=== PATIENT | female | born 1990 | race African-American/Black ===

== ENCOUNTER 2022-01-02 16:00 | Emergency (ER) | payer SELFPAY ==
[2022-01-02] MEDS ORDERED: Ketorolac Tromethamine 30 MG/ML VIAL ONE (16:43)
[2022-01-02 17:43] LABS: SARS-CoV-2 NAA Rapid Test Not Detected (NotDetected)
== END 2022-01-02 18:30 | disposition home or self-care (01) ==
LOC: CSHERS 16:00
DX: J06.9 Acute upper respiratory infection, unspecified (principal); F17.210 Nicotine dependence, cigarettes, uncomplicated; Z20.822 Contact with and (suspected) exposure to COVID-19
CPT/HCPCS: 71045; 93005; 96372; J1885

== ENCOUNTER 2022-12-10 10:21 | Day surgery (SDC) | payer SELFPAY ==
[2022-12-10 10:42] VITALS: BMI 32.8
[2022-12-10] MEDS ORDERED: hydrALAZINE 20 MG/ML VIAL SLOW IVP PRN (11:00)
[2022-12-10] MEDS ORDERED: Lactated Ringer's 1,000 ML IV SCH (11:15)
[2022-12-10 12:08] LABS: #Eosinphils 0.1 10x3/uL (0.0-0.5); #Monocytes 0.8 10x3/uL (0.0-1.1); #Neutrophils 5.8 10x3/uL (1.5-8.4); %Basophils 0.4 % (0.0-2.0); %Eosinophils 1.5 % (0.0-6.0); %Lymphocytes 20.2 % (18.0-47.0); %Monocytes 8.9 % (0.0-10.0); %Neutrophils 68.1 % (40.0-75.0); Hematocrit 31.4 % (34.9-44.5); Hemoglobin 10.6 g/dL (12.0-15.5); Mean Corpuscular HGB CONC 33.8 g/dL (32.0-36.0); Mean Corpuscular Hemoglobin 31.4 pg (27.0-33.0); Mean Corpuscular Volume 92.9 fl (81.6-98.3); Mean Platelet Volume 10.9 fl (7.4-10.4); Platelet Count 244 10x3/uL (150-450); RBC Distribution Width 12.2 % (11.5-14.5); Red Blood Cell (RBC) Count 3.38 10x6/uL (3.90-5.03); White Blood Cell (WBC) Count 8.5 10x3/uL (3.5-10.5)
[2022-12-10 12:13] LABS: ALT (SGPT) 9 U/L (8-55); AST (SGOT) 15 U/L (5-34); Albumin 3.4 g/dL (3.5-5.0); Alkaline Phosphatase 77 U/L (40-110); Anion Gap 15 mmol/L (10-20); BUN (Urea Nitrogen) 5 mg/dL (7.0-18.7); Bilirubin, Total 0.2 mg/dL (0.2-1.2); Calc. Creatinine Clearance 148 mL/min (70-130); Calcium 9.8 mg/dL (7.8-10.44); Carbon Dioxide 21 mmol/L (22-29); Chloride 107 mmol/L (98-107); Estimated GFR 119; Globulin 3.1 g/dL (2.4-3.5); Glucose 82 mg/dL (70-105); Potassium 4.2 mmol/L (3.5-5.1); Protein, Total 6.5 g/dL (6.0-8.3); Sodium 139 mmol/L (136-145)
[2022-12-10 12:14] LABS: Bilirubin Neg (Negative); Blood, Urine Negative (Negative); Clarity Clear (Clear); Glucose, Urine (Dipstick) Normal (Negative); Ketone, Urine Negative (Negative); Leukocyte 500 (Negative); Nitrite Negative (Negative); Protein, Urine (Dipstick) Negative (Neg-Trace); Urobilinogen Normal mg/dL (Less than 2)
[2022-12-10 12:24] LABS: Amphetamine Not Detected (NotDetected); Barbiturates Screen Not Detected (NotDetected); Benzodiazepine Screen Not Detected (NotDetected); Cocaine Metabolite Screen Not Detected (NotDetected); Methadone Not Detected (NotDetected); Methamphetamine Not Detected (NotDetected); Opiate Screen Not Detected (NotDetected); Oxycodone Screen Not Detected (NotDetected); Phencyclidine (PCP) Detected (NotDetected); THC/Cannabinoid Screen Not Detected (NotDetected); Tricyclic Screen Not Detected (NotDetected)
[2022-12-10 12:31] LABS: CAUTI Indications for Culture Pregnancy; RBC/HPF None Seen HPF (0-3)
[2022-12-10 12:32] LABS: Bacteria/HPF 1+ HPF (None Seen); Squamous Epithelial 0-3 HPF (0-3)
[2022-12-10 12:34] LABS: Urine Culture Reflex Yes Yes
[2022-12-10] MEDS ORDERED: cefTRIAXone\\ROCEPHIN 1 GM in Sodium Chloride 0.9% 100 ML IVPB SCH (14:00)
== END 2022-12-10 15:25 | disposition home or self-care (01) ==
LOC: CSHLD/OP 10:21
PROVIDERS: ATTEND Family Medicine
DX: O47.03 False labor before 37 completed weeks of gestation, third trimester (principal); O23.43 Unspecified infection of urinary tract in pregnancy, third trimester; N39.0 Urinary tract infection, site not specified; Z87.59 Personal history of other complications of pregnancy, childbirth and the puerperium; Z79.899 Other long term (current) drug therapy; Z3A.32 32 weeks gestation of pregnancy
CPT/HCPCS: 36415; 76815; 80053; 80306; 81001; 85025; 87086; 96360; 99285; J0696; J3490

== ENCOUNTER 2023-01-06 09:23 | Day surgery (SDC) | payer MEDICAID, OTHER ==
[2023-01-06 10:26] LABS: #Basophils 0.1 10x3/uL (0.0-0.2); #Eosinphils 0.2 10x3/uL (0.0-0.5); #Monocytes 0.8 10x3/uL (0.0-1.1); #Neutrophils 6.5 10x3/uL (1.5-8.4); %Basophils 0.5 % (0.0-2.0); %Eosinophils 2.5 % (0.0-6.0); %Lymphocytes 18.3 % (18.0-47.0); %Monocytes 8.4 % (0.0-10.0); %Neutrophils 69.8 % (40.0-75.0); Hemoglobin 9.7 g/dL (12.0-15.5); Mean Corpuscular HGB CONC 33.4 g/dL (32.0-36.0); Mean Corpuscular Hemoglobin 31.3 pg (27.0-33.0); Mean Corpuscular Volume 93.5 fl (81.6-98.3); Mean Platelet Volume 11.2 fl (7.4-10.4); Platelet Count 247 10x3/uL (150-450); RBC Distribution Width 12.3 % (11.5-14.5); White Blood Cell (WBC) Count 9.3 10x3/uL (3.5-10.5)
[2023-01-06 10:28] LABS: ALT (SGPT) 10 U/L (8-55); AST (SGOT) 17 U/L (5-34); Albumin 3.4 g/dL (3.5-5.0); Alkaline Phosphatase 136 U/L (40-110); Anion Gap 13 mmol/L (10-20); BUN (Urea Nitrogen) 5 mg/dL (7.0-18.7); Bilirubin, Total 0.2 mg/dL (0.2-1.2); Calc. Creatinine Clearance 0 mL/min (70-130); Calcium 9.4 mg/dL (7.8-10.44); Carbon Dioxide 19 mmol/L (22-29); Chloride 108 mmol/L (98-107); Estimated GFR 119; Globulin 3.2 g/dL (2.4-3.5); Glucose 96 mg/dL (70-105); Lipase 5 U/L (8-78); Magnesium 1.8 mg/dL (1.6-2.6); Potassium 3.9 mmol/L (3.5-5.1); Protein, Total 6.6 g/dL (6.0-8.3); Sodium 136 mmol/L (136-145)
[2023-01-06 11:19] LABS: SARS-CoV-2 NAA Rapid Test Not Detected (NotDetected)
[2023-01-06 12:28] VITALS: BMI 32.8
[2023-01-06] MEDS ORDERED: hydrALAZINE 20 MG/ML VIAL SLOW IVP PRN (12:38)
[2023-01-06] MEDS ORDERED: Acetaminophen 500 MG TAB PO SCH (14:00)
[2023-01-06] MEDS ORDERED: guaiFENesin ER 600 MG TAB PO SCH (14:00)
[2023-01-06 14:35] LABS: Creatinine, Urine Less than 20.00 mg/dL (47-110); Protein, Urine Random Quant Less than 10 mg/dL (1-14)
== END 2023-01-06 14:20 | disposition home health service (06) ==
LOC: CSHERS 09:23 → CSHLD/OP 11:37
PROVIDERS: ATTEND Family Medicine
DX: O99.891 Other specified diseases and conditions complicating pregnancy (principal); R07.9 Chest pain, unspecified; J06.9 Acute upper respiratory infection, unspecified; O99.323 Drug use complicating pregnancy, third trimester; F19.90 Other psychoactive substance use, unspecified, uncomplicated; O13.3 Gestational [pregnancy-induced] hypertension without significant proteinuria, third trimester; Z3A.36 36 weeks gestation of pregnancy
CPT/HCPCS: 71045; 80053; 82570; 83690; 83735; 84156; 85025; 93005; 99282

== ENCOUNTER 2023-01-18 14:58 | Inpatient (IN) | payer OTHER ==
[2023-01-18] MEDS ORDERED: Diphenoxylate HCl/Atropine Tablet PO PRN (16:06)
[2023-01-18] MEDS ORDERED: Methylergonovine 0.2 MG/ML VIAL IM PRN (16:06)
[2023-01-18] MEDS ORDERED: Ondansetron PF 4 MG/2 ML Vial IVP PRN ×4 (16:06→21:32)
[2023-01-18] MEDS ORDERED: Promethazine HCl 25 MG/ML VIAL IM PRN ×4 (16:06→21:32)
[2023-01-18] MEDS ORDERED: Misoprostol 200 MCG TAB PR PRN (16:06)
[2023-01-18] MEDS ORDERED: hydrALAZINE 20 MG/ML VIAL SLOW IVP PRN (16:06)
[2023-01-18] MEDS ORDERED: Tranexamic Acid 1,000 MG/10 ML VIAL IVP PRN (16:06)
[2023-01-18] MEDS ORDERED: Famotidine/PF 20 mg/2ml Vial SLOW IVP PRN (16:06)
[2023-01-18] MEDS ORDERED: Carboprost 250 MCG/ML AMP IM PRN (16:06)
[2023-01-18] MEDS ORDERED: Bicitra 30 ML UDCUP PO PRN (16:06)
[2023-01-18] MEDS ORDERED: CEFAZOLIN 2 GM in Sodium Chloride 0.9% 100 ML IVPB SCH (16:15)
[2023-01-18] MEDS ORDERED: Oxytocin 30 units/NS 500 ML 500 ML IV SCH (16:15)
[2023-01-18 16:18] VITALS: BMI 38.7
[2023-01-18 16:42] LABS: Hematocrit 33.9 % (34.9-44.5); Hemoglobin 11.5 g/dL (12.0-15.5); Mean Corpuscular HGB CONC 33.9 g/dL (32.0-36.0); Mean Corpuscular Hemoglobin 29.9 pg (27.0-33.0); Mean Corpuscular Volume 88.3 fl (81.6-98.3); Mean Platelet Volume 11.7 fl (7.4-10.4); Platelet Count 292 10x3/uL (150-450); RBC Distribution Width 12.4 % (11.5-14.5); Red Blood Cell (RBC) Count 3.84 10x6/uL (3.90-5.03); White Blood Cell (WBC) Count 8.3 10x3/uL (3.5-10.5)
[2023-01-18 16:56] LABS: ALT (SGPT) 17 U/L (8-55); AST (SGOT) 25 U/L (5-34); Albumin 3.6 g/dL (3.5-5.0); Alkaline Phosphatase 158 U/L (40-110); Anion Gap 17 mmol/L (10-20); BUN (Urea Nitrogen) 7 mg/dL (7.0-18.7); Bilirubin, Total 0.2 mg/dL (0.2-1.2); Calc. Creatinine Clearance 158 mL/min (70-130); Calcium 9.4 mg/dL (7.8-10.44); Carbon Dioxide 18 mmol/L (22-29); Chloride 105 mmol/L (98-107); Estimated GFR 114; Globulin 2.8 g/dL (2.4-3.5); Glucose 108 mg/dL (70-105); Protein, Total 6.4 g/dL (6.0-8.3); Sodium 136 mmol/L (136-145)
[2023-01-18 17:00] LABS: Amphetamine Not Detected (NotDetected); Barbiturates Screen Not Detected (NotDetected); Benzodiazepine Screen Not Detected (NotDetected); Cocaine Metabolite Screen Not Detected (NotDetected); Methadone Not Detected (NotDetected); Methamphetamine Not Detected (NotDetected); Opiate Screen Not Detected (NotDetected); Oxycodone Screen Not Detected (NotDetected); Phencyclidine (PCP) Detected (NotDetected); THC/Cannabinoid Screen Not Detected (NotDetected); Tricyclic Screen Not Detected (NotDetected)
[2023-01-18] MEDS: Lactated Ringer's 1,000 ML IV SCH (17:01)
[2023-01-18] MEDS ORDERED: fentaNYL 50 mcg/mL 1 mL Vial SLOW IVP PRN (17:09)
[2023-01-18] MEDS ORDERED: Ketorolac Tromethamine 30 MG/ML VIAL IVP PRN ×2 (17:09→21:32)
[2023-01-18] MEDS ORDERED: Promethazine HCl 25 MG SUPP PR PRN ×2 (17:09→21:32)
[2023-01-18] MEDS ORDERED: Naloxone HCl 0.4 mg/ml Vial IV PRN ×2 (17:09→21:32)
[2023-01-18] MEDS ORDERED: diphenhydrAMINE 50 MG/ML VIAL IVP PRN ×2 (17:09→21:32)
[2023-01-18] MEDS ORDERED: Naloxone HCl 0.4 mg/ml Vial IVP PRN ×4 (17:09→21:32)
[2023-01-18] MEDS ORDERED: Meperidine HCl/PF 25 MG/ML VIAL SLOW IVP PRN (17:09)
[2023-01-18] MEDS ORDERED: HYDROmorphone 0.5 MG/0.5 ML SYRINGE SLOW IVP PRN (17:09)
[2023-01-18] MEDS ORDERED: Moisturizing Cream (Eucerin) 113 GM JAR TOP PRN ×2 (17:09→21:32)
[2023-01-18] MEDS ORDERED: Ketorolac Tromethamine 30 MG/ML VIAL IVP SCH (17:15)
[2023-01-18] MEDS ORDERED: Communication Order-Pharmacy FS SCH ×2 (17:15→21:45)
[2023-01-18 17:19] LABS: HBSAg Index 0.12 S/CO (0-0.99); Hep B Surf Ag - L&D Non-Reactive S/CO (NonReactive)
[2023-01-18 17:20] LABS: Syphilis Antibody Nonreactive (Nonreactive); Syphilis Antibody Index 0.03 S/CO (<1.00 Non-Reactive)
[2023-01-18] MEDS ORDERED: Morphine PF 10 MG/10 ML VIAL ONE (17:25)
[2023-01-18] MEDS ORDERED: fentaNYL 50 mcg/mL 1 mL Vial ONE (17:25)
[2023-01-18] MEDS ORDERED: Oxytocin 10 UNITS/ML VIAL ONE ×2 (17:26→18:39)
[2023-01-18] MEDS ORDERED: Ondansetron PF 4 MG/2 ML Vial ONE (17:26)
[2023-01-18] MEDS ORDERED: Phenylephrine 40 MG/NS 250 ML 250 ML ONE (17:29)
[2023-01-18] MEDS ORDERED: HYDROmorphone 2 MG/ML VIAL SLOW IVP PRN (21:32)
[2023-01-18] MEDS ORDERED: Ondansetron HCl/PF 4 MG/2 ML Vial IVP PRN (21:32)
[2023-01-19] MEDS ORDERED: hydrALAZINE 20 MG/ML VIAL SLOW IVP PRN (00:24)
[2023-01-19] MEDS ORDERED: Ondansetron PF 4 MG/2 ML Vial IVP PRN (00:24)
[2023-01-19] MEDS ORDERED: Boostrix 0.5 ML (Tdap) VIAL (>/=7 yrs of age) IM ONE (00:24)
[2023-01-19] MEDS ORDERED: Bisacodyl 10 MG SUPP PR PRN (00:24)
[2023-01-19] MEDS ORDERED: diphenhydrAMINE 25 MG CAP PO PRN (00:24)
[2023-01-19] MEDS ORDERED: Lanolin Ointment 7 GM TUBE TOP PRN (00:24)
[2023-01-19] MEDS ORDERED: Promethazine HCl 25 MG/ML VIAL IM PRN (00:24)
[2023-01-19] MEDS ORDERED: Ferrous Sulfate 325 MG TAB PO SCH (00:45)
[2023-01-19] MEDS ORDERED: Docusate 100 MG CAP PO SCH (00:45)
[2023-01-19] MEDS ORDERED: Communication Order-Pharmacy FS SCH (00:45)
[2023-01-19] MEDS: Ketorolac Tromethamine 30 MG/ML VIAL IVP SCH ×4 (00:48→19:26)
[2023-01-19] MEDS: Simethicone Chewable 80 MG TAB PO PRN ×3 (01:22→13:25)
[2023-01-19 04:25] LABS: Hematocrit 30.3 % (34.9-44.5); Hemoglobin 10.1 g/dL (12.0-15.5); Mean Corpuscular HGB CONC 33.3 g/dL (32.0-36.0); Mean Corpuscular Hemoglobin 29.7 pg (27.0-33.0); Mean Corpuscular Volume 89.1 fl (81.6-98.3); Mean Platelet Volume 11.2 fl (7.4-10.4); Platelet Count 227 10x3/uL (150-450); RBC Distribution Width 12.6 % (11.5-14.5); White Blood Cell (WBC) Count 9.6 10x3/uL (3.5-10.5)
[2023-01-19] MEDS ORDERED: Meperidine HCl/PF 25 MG/ML VIAL IM PRN (05:15)
[2023-01-19] MEDS: Lactated Ringer's 1,000 ML IV SCH (07:22)
[2023-01-19] MEDS: Ferrous Sulfate 325 MG TAB PO SCH ×2 (07:23→19:34)
[2023-01-19] MEDS: Docusate 100 MG CAP PO SCH ×2 (09:10→21:05)
[2023-01-19] MEDS: Prenatal Vitamin 1 TAB PO SCH (09:10)
[2023-01-19] MEDS: HYDROcodone/Acetaminophen 5/325 mg Tablet PO PRN ×3 (09:10→18:50)
[2023-01-19] MEDS ORDERED: NIFEdipine XL 30 MG ER.TAB PO SCH (18:30)
[2023-01-19] MEDS: Ibuprofen 800 MG TAB PO SCH (21:05)
[2023-01-20] MEDS: HYDROcodone/Acetaminophen 5/325 mg Tablet PO PRN ×4 (04:08→21:06)
[2023-01-20] MEDS: Ibuprofen 800 MG TAB PO SCH ×3 (06:03→21:57)
[2023-01-20] MEDS: NIFEdipine XL 30 MG ER.TAB PO SCH (09:30)
[2023-01-20] MEDS: Docusate 100 MG CAP PO SCH ×2 (09:31→21:06)
[2023-01-20] MEDS: Prenatal Vitamin 1 TAB PO SCH (09:31)
[2023-01-20] MEDS: Ferrous Sulfate 325 MG TAB PO SCH ×2 (13:58→19:39)
[2023-01-21] MEDS: HYDROcodone/Acetaminophen 5/325 mg Tablet PO PRN ×3 (01:12→10:56)
[2023-01-21] MEDS: Ibuprofen 800 MG TAB PO SCH (05:10)
[2023-01-21] MEDS: Ferrous Sulfate 325 MG TAB PO SCH (07:01)
[2023-01-21] MEDS: NIFEdipine XL 30 MG ER.TAB PO SCH (07:36)
[2023-01-21] MEDS: Prenatal Vitamin 1 TAB PO SCH (07:37)
[2023-01-21 08:02] VITALS: BP 131/73; TEMP 98.3
[2023-01-21] MEDS: Docusate 100 MG CAP PO SCH (10:57)
[2023-01-21] MEDS: Simethicone Chewable 80 MG TAB PO PRN (10:59)
== END 2023-01-21 12:55 | disposition home or self-care (01) | DRG 787 ==
LOC: CSHLD 14:58 → CSHPP 22:45
PROVIDERS: ADMIT Family Medicine; ATTEND Family Medicine
PROC: 10D00Z1 Extraction of Products of Conception, Low, Open Approach (ICD-10-PCS; principal; 2023-01-18)
DX: O34.211 Maternal care for low transverse scar from previous cesarean delivery (principal); O98.52 Other viral diseases complicating childbirth; Z37.0 Single live birth; Z3A.38 38 weeks gestation of pregnancy; B00.9 Herpesviral infection, unspecified; Z79.899 Other long term (current) drug therapy; Z91.010 Allergy to peanuts; O14.94 Unspecified pre-eclampsia, complicating childbirth
CPT/HCPCS: 51702; 80053; 80306; 82570; 84156; 85027; 86780; 86850; 86900; 86901; 87340; J1200; J1885; J2274; J2310; J2405; J2590; J3010; J3490; J7120; S0028